=== PATIENT | male | born 1990 | race Two or more races ===

== ENCOUNTER 2024-08-17 16:05 | Emergency (ER) | payer MEDICAID ==
[~2024-08-17] VITALS: Ht 167.6 cm; Wt 63.6 kg
[2024-08-17 16:07] VITALS: BP 127/82; PULSE 75; RESP 16; TEMP 97.4; O2SAT 99
[2024-08-17] MEDS ORDERED: MAGN454C TOP (16:13)
[2024-08-17] MEDS ORDERED: DOXY100C43 PO (16:13)
[2024-08-17] MEDS ORDERED: IBUP-1984 PO (16:13)
== END 2024-08-17 16:20 | disposition home or self-care (01) ==
LOC: ER 16:05
DX: L60.0 Ingrowing nail (principal); Z79.1 Long term (current) use of non-steroidal anti-inflammatories (NSAID); Z79.2 Long term (current) use of antibiotics; Z79.899 Other long term (current) drug therapy
CPT/HCPCS: 99283